=== PATIENT | male | born 2000 | race Caucasian/White ===

== ENCOUNTER 2025-06-13 20:39 | Inpatient (IN) | payer MEDICAID ==
[~2025-06-13] VITALS: Ht 177.8 cm; Wt 65.8 kg
[2025-06-13 20:46] VITALS: O2SAT 100
[2025-06-13] MEDS: SODIUM CHLORIDE 0.9% (SEPSIS BOLUS) IV ONE (23:31)
[2025-06-13] MEDS: PIPERACILLIN/TAZO 3.375G/50ML 50 ML IV ONE (23:37)
[2025-06-13 23:52] LABS: BASOPHILS % 0.8 % (0.0-2.0); EOSINOPHILS % 1.3 % (0.0-5.0); HEMATOCRIT. 34.6 % (42.0-52.0); HEMOGLOBIN. 10.9 g/dL (14.0-18.0); LYMPHOCYTES % 20.7 % (20.0-50.0); MEAN PLATELET VOLUME 8.3 fl (7.4-10.4); MONOCYTES % 7.0 % (2.0-8.0); NEUTROPHILS % 70.2 % (40.0-76.0); PLATELET 388 x1000/uL (130-400); RED BLOOD CELL COUNT 4.63 mill/uL (4.7-6.1); RED CELL DISTRIBUTION WIDTH 17.5 % (11.6-14.6)
[2025-06-13] MEDS: MORPHINE SULFATE 4 MG/ML INJ (FOR IV/IM USE) IV ONE (23:59)
[2025-06-13] MEDS: ONDANSETRON HCL 4MG/2ML INJ IV ONE (23:59)
[2025-06-14 00:02] LABS: CREATININE 0.9 mg/dL (0.6-1.3)
[2025-06-14 00:03] LABS: UREA NITROGEN BLOOD 8 mg/dL (9-23)
[2025-06-14 00:04] LABS: ASPARTATE AMINOTRANSFERASE 15 IU/L (<34)
[2025-06-14 00:05] LABS: BILIRUBIN DIRECT 0.1 mg/dL (<=3.0); BILIRUBIN TOTAL 0.3 mg/dL (0.1-1.0); PROTEIN TOTAL 8.1 g/dL (6.0-8.3)
[2025-06-14 00:54] LABS: CLARITY URINE CLEAR (CLEAR); COLOR URINE YELLOW (YELLOW); GLUCOSE URINE NEGATIVE (NEGATIVE); KETONES URINE NEGATIVE (NEGATIVE); LEUKOCYTE ESTERASE URINE NEGATIVE (NEGATIVE); NITRITE URINE NEGATIVE (NEGATIVE); OCCULT BLOOD URINE NEGATIVE (NEGATIVE); PH URINE 5.5 (4.5-8.0); PROTEIN URINE NEGATIVE (NEGATIVE); SPECIFIC GRAVITY URINE 1.015 (1.005-1.030); UROBILINOGEN URINE 0.2 E.U./dL (0.2-1.0)
[2025-06-14 01:04] LABS: *AMPHETAMINES SCREEN URINE NEGATIVE (NEGATIVE); *BARBITURATES SCREEN URINE NEGATIVE (NEGATIVE); *BENZODIAZEPINES SCREEN URINE NEGATIVE (NEGATIVE); *COCAINE SCREEN URINE NEGATIVE (NEGATIVE); METHADONE URINE SCREEN NEGATIVE (NEGATIVE); OPIATES URINE SCREEN NEGATIVE (NEGATIVE)
[2025-06-14 01:05] LABS: CANNABINOID URINE SCREEN NEGATIVE (NEGATIVE); ECSTASY MDMA SCREEN URINE NEGATIVE (NEGATIVE); PHENCYCLIDINE URINE SCREEN NEGATIVE (NEGATIVE)
[2025-06-14] MEDS: METRONIDAZOLE 500 MG PREMIX 100 ML IV ONE (01:18)
[2025-06-14] MEDS: VANCOMYCIN 1G PREMIX 200 ML IV ONE (01:32)
[2025-06-14] MEDS: IOHEXOL-300 100 ML BOTTLE ONE (02:28)
[2025-06-14] MEDS: ONDANSETRON HCL 4MG/2ML INJ IV ONE (05:07)
[2025-06-14] MEDS: MORPHINE SULFATE 4 MG/ML INJ (FOR IV/IM USE) IV ONE (05:07)
[2025-06-14] MEDS ORDERED: MORPHINE SULFATE 4 MG/ML INJ (FOR IV/IM USE) IV PRN (05:30)
[2025-06-14] MEDS ORDERED: ONDANSETRON HCL 4MG/2ML INJ IV PRN ×4 (05:30→14:45)
[2025-06-14] MEDS ORDERED: ACETAMINOPHEN 325MG TABLET PO PRN ×2 (05:30)
[2025-06-14] MEDS ORDERED: DEXTROSE 50% WATER 50ML SYRINGE IV PRN ×2 (05:30→05:45)
[2025-06-14] MEDS ORDERED: IPRATROPIUM/ALBUTEROL 0.5-3(2.5)MG/3ML NEB HHN PRN (05:30)
[2025-06-14] MEDS ORDERED: KETOROLAC 15MG/ML VIAL IV PRN (05:45)
[2025-06-14] MEDS: DEXT 5%/0.9% NACL 1,000 ML IV SCH (05:51)
[2025-06-14] MEDS: DIATR MEGLU/DIATRIZOATE SOLN 30ML ONE (06:00)
[2025-06-14 06:20] LABS: BASOPHILS % 1.0 % (0.0-2.0); EOSINOPHILS % 2.9 % (0.0-5.0); HEMATOCRIT. 27.7 % (42.0-52.0); HEMOGLOBIN. 8.8 g/dL (14.0-18.0); LYMPHOCYTES % 31.6 % (20.0-50.0); MEAN PLATELET VOLUME 7.9 fl (7.4-10.4); MONOCYTES % 7.6 % (2.0-8.0); NEUTROPHILS % 56.9 % (40.0-76.0); PLATELET 297 x1000/uL (130-400); RED BLOOD CELL COUNT 3.70 mill/uL (4.7-6.1); RED CELL DISTRIBUTION WIDTH 17.7 % (11.6-14.6)
[2025-06-14 06:26] LABS: CREATININE 0.8 mg/dL (0.6-1.3)
[2025-06-14 06:27] LABS: UREA NITROGEN BLOOD 7 mg/dL (9-23)
[2025-06-14 06:29] LABS: PHOSPHORUS 3.7 mg/dL (2.5-4.9)
[2025-06-14] MEDS ORDERED: GABA-529 PO (08:24)
[2025-06-14 08:30] VITALS: BP 114/62; PULSE 73; RESP 18; TEMP 36.0844
[2025-06-14] MEDS: PIPERACILLIN/TAZO 3.375G/50ML 50 ML IV SCH (08:33)
[2025-06-14 12:00] VITALS: BP 103/59; PULSE 70; RESP 18; TEMP 37; O2SAT 96
[2025-06-14] MEDS ORDERED: TRAMADOL 50MG TABLET PO PRN (12:00)
[2025-06-14] MEDS ORDERED: ONDANSETRON HCL 4MG/2ML INJ ONE (13:39)
[2025-06-14] MEDS ORDERED: PROPOFOL 200MG/20ML VIAL IV ONE ×2 (13:39→14:12)
[2025-06-14] MEDS ORDERED: ROCURONIUM BROMIDE 10MG/ML VIAL 5ML IV ONE ×2 (13:39→14:07)
[2025-06-14] MEDS ORDERED: FENTANYL CITRATE/PF 50MCG/ML 2ML VIAL ONE (13:40)
[2025-06-14] MEDS ORDERED: MIDAZOLAM HCL 2 MG/2 ML VIAL ONE (13:40)
[2025-06-14] MEDS ORDERED: SKIN ADHESIVE 0.7 GM EA TOP ONE (13:42)
[2025-06-14] MEDS ORDERED: BUPIVACAINE HCL/PF 0.5% (5MG/ML) 10ML ONE (13:42)
[2025-06-14] MEDS ORDERED: NALOXONE HCL 0.4MG/ML VIAL IV PRN (13:45)
[2025-06-14] MEDS ORDERED: HYDROMORPHONE HCL/PF 1MG/ML INJ IV PRN ×2 (13:45→14:45)
[2025-06-14] MEDS ORDERED: HYDROCODONE/ACETAMINOPHEN 5/325MG TABLET PO PRN ×2 (14:00)
[2025-06-14] MEDS: DEXT 5%/0.45% NACL KCL 20MEQ/L 1,000 ML IV SCH (14:00)
[2025-06-14] MEDS ORDERED: HYDROMORPHONE HCL/PF 2MG/ML INJ ONE (14:28)
[2025-06-14] MEDS ORDERED: FAMOTIDINE 20MG/2ML VIAL IV PRN (14:45)
[2025-06-14] MEDS ORDERED: ACETAMINOPHEN 1,000MG/100ML PREMIX IV PRN (14:45)
[2025-06-14] MEDS ORDERED: LORAZEPAM 2MG/ML UD SYRINGE IV PRN (14:45)
[2025-06-14] MEDS ORDERED: LABETALOL 5MG/ML 4ML INJ IV PRN (14:45)
[2025-06-14] MEDS ORDERED: HYDRALAZINE 20MG/ML VIAL IV PRN ×2 (14:45)
[2025-06-14] MEDS ORDERED: MEPERIDINE HCL/PF 25MG/ML CPJ IV PRN (14:45)
[2025-06-14] MEDS ORDERED: ACETAMINOPHEN 1000MG/100ML 100 ML IV PRN (15:15)
[2025-06-14 16:00] VITALS: BP 110/60; PULSE 51; RESP 18; TEMP 36.7; O2SAT 100
[2025-06-14] MEDS: ASCORBIC ACID 250 MG TABLET PO SCH (17:30)
[2025-06-14] MEDS: MULTIVITAMINS,THER W-MINERALS TABLET PO SCH (17:30)
[2025-06-14 20:00] VITALS: BP 111/63; PULSE 54; RESP 18; TEMP 36.2; O2SAT 99
[2025-06-14] MEDS: MORPHINE SULFATE 10 MG/ML INJ (NOT FOR IM USE) IV PRN (20:18)
[2025-06-14] MEDS: IRON SUCROSE COMPLEX 100 MG/5 ML ML IV SCH (20:26)
[2025-06-15] VITALS: BP 103/61; PULSE 72; RESP 19; TEMP 36.2; O2SAT 99
[2025-06-15 04:00] VITALS: BP 109/52; PULSE 62; RESP 18; TEMP 36.2; O2SAT 98
[2025-06-15 08:00] VITALS: BP 105/60; PULSE 60; RESP 18; TEMP 37; O2SAT 98
[2025-06-15] MEDS: PANTOPRAZOLE SODIUM 40 MG/VIAL IV SCH (08:52)
[2025-06-15] MEDS: HYDROCODONE/ACETAMINOPHEN 10/325MG TABLET PO PRN (08:52)
[2025-06-15] MEDS ORDERED: MORPHINE SULFATE 2 MG/ML INJ (NOT FOR IM USE) IV PRN (09:15)
[2025-06-15 09:37] LABS: FOLIC ACID (FOLATE) SERUM 13.70 ng/mL (>5.38); VITAMIN B12 SERUM 508 pg/mL (211-911)
[2025-06-15 09:47] LABS: BASOPHILS % 0.5 % (0.0-2.0); EOSINOPHILS % 0.3 % (0.0-5.0); HEMATOCRIT. 30.8 % (42.0-52.0); HEMOGLOBIN. 9.8 g/dL (14.0-18.0); LYMPHOCYTES % 20.3 % (20.0-50.0); MEAN PLATELET VOLUME 8.7 fl (7.4-10.4); MONOCYTES % 7.7 % (2.0-8.0); NEUTROPHILS % 71.2 % (40.0-76.0); PLATELET 348 x1000/uL (130-400); RED BLOOD CELL COUNT 4.18 mill/uL (4.7-6.1); RED CELL DISTRIBUTION WIDTH 17.7 % (11.6-14.6)
[2025-06-15 09:48] LABS: CREATININE 0.8 mg/dL (0.6-1.3)
[2025-06-15 09:49] LABS: UREA NITROGEN BLOOD 6 mg/dL (9-23)
[2025-06-15 09:50] LABS: ASPARTATE AMINOTRANSFERASE 13 IU/L (<34)
[2025-06-15 09:51] LABS: BILIRUBIN DIRECT < 0.1 mg/dL (<=3.0); BILIRUBIN TOTAL 0.3 mg/dL (0.1-1.0); PHOSPHORUS 3.9 mg/dL (2.5-4.9); PROTEIN TOTAL 6.3 g/dL (6.0-8.3)
[2025-06-15 09:59] LABS: C REACTIVE PROTEIN HIGH SENS 22.55 mg/l (<1.00)
[2025-06-15] MEDS ORDERED: GABAPENTIN 100MG CAPSULE PO PRN (10:30)
[2025-06-15 12:00] VITALS: BP 104/58; PULSE 61; RESP 18; TEMP 36.6; O2SAT 98
[2025-06-15] MEDS ORDERED: GABA-1180 PO (12:25)
[2025-06-15] MEDS: MORPHINE SULFATE 10 MG/ML INJ (NOT FOR IM USE) IV PRN (12:27)
[2025-06-15 17:40] VITALS: BP 109/57; PULSE 71; RESP 18; TEMP 36.8; O2SAT 98
[2025-06-15 20:23] VITALS: BP 104/49; PULSE 55; RESP 17; TEMP 36.7; O2SAT 100
[2025-06-15] MEDS: BUSPIRONE HCL 10MG TABLET PO SCH (20:34)
[2025-06-16] VITALS: BP 110/59; PULSE 62; RESP 18; TEMP 36.8; O2SAT 98
[2025-06-16 04:00] VITALS: BP 119/68; PULSE 62; RESP 17; TEMP 36.7; O2SAT 97
[2025-06-16 06:36] LABS: BASOPHILS % 0.9 % (0.0-2.0); EOSINOPHILS % 2.5 % (0.0-5.0); HEMATOCRIT. 28.5 % (42.0-52.0); HEMOGLOBIN. 9.3 g/dL (14.0-18.0); LYMPHOCYTES % 37.7 % (20.0-50.0); MEAN PLATELET VOLUME 8.4 fl (7.4-10.4); MONOCYTES % 7.3 % (2.0-8.0); NEUTROPHILS % 51.6 % (40.0-76.0); PLATELET 281 x1000/uL (130-400); RED BLOOD CELL COUNT 3.86 mill/uL (4.7-6.1); RED CELL DISTRIBUTION WIDTH 17.3 % (11.6-14.6)
[2025-06-16 06:59] LABS: CREATININE 1.0 mg/dL (0.6-1.3)
[2025-06-16 07:00] LABS: UREA NITROGEN BLOOD 6 mg/dL (9-23)
[2025-06-16 07:02] LABS: PHOSPHORUS 4.8 mg/dL (2.5-4.9)
[2025-06-16] MEDS: FOLIC ACID/VITAMIN B COMP W-C TABLET PO SCH (10:06)
[2025-06-16] MEDS ORDERED: MEROPENEM 1,000 MG in SODIUM CHLORIDE 0.9% 100 ML IV SCH (14:30)
[2025-06-16] MEDS: MEROPENEM 1,000MG in SODIUM CHLORIDE 0.9% 100ML IV SCH (17:11)
[2025-06-16 20:00] VITALS: BP 112/60; PULSE 58; RESP 18; TEMP 36.7; O2SAT 100
[2025-06-17] VITALS: BP 110/58; PULSE 60; RESP 18; TEMP 36.5; O2SAT 98
[2025-06-17 04:00] VITALS: BP 111/59; PULSE 56; RESP 18; TEMP 36.7; O2SAT 96
[2025-06-17 08:00] VITALS: BP 107/62; PULSE 54; RESP 18; TEMP 36.2; O2SAT 99
[2025-06-17 11:26] LABS: BASOPHILS % 0.5 % (0.0-2.0); EOSINOPHILS % 1.5 % (0.0-5.0); HEMATOCRIT. 32.7 % (42.0-52.0); HEMOGLOBIN. 10.6 g/dL (14.0-18.0); LYMPHOCYTES % 18.6 % (20.0-50.0); MEAN PLATELET VOLUME 8.1 fl (7.4-10.4); MONOCYTES % 7.1 % (2.0-8.0); NEUTROPHILS % 72.3 % (40.0-76.0); PLATELET 321 x1000/uL (130-400); RED BLOOD CELL COUNT 4.48 mill/uL (4.7-6.1); RED CELL DISTRIBUTION WIDTH 17.5 % (11.6-14.6)
[2025-06-17 11:45] LABS: CREATININE 1.0 mg/dL (0.6-1.3); UREA NITROGEN BLOOD 8 mg/dL (9-23)
[2025-06-17 11:47] LABS: PHOSPHORUS 3.4 mg/dL (2.5-4.9)
[2025-06-17 16:12] VITALS: BP 114/54; PULSE 61; RESP 18; TEMP 36.8; O2SAT 98
[2025-06-17 20:00] VITALS: BP 108/50; PULSE 76; RESP 18; TEMP 36.1; O2SAT 99
[2025-06-17] MEDS: LACTOBACILLUS RHAMNOSUS GG CAP PO SCH (20:18)
[2025-06-18] VITALS: BP 100/47; PULSE 72; RESP 18; TEMP 36.2; O2SAT 99
[2025-06-18 04:00] VITALS: BP 100/59; PULSE 64; RESP 18; TEMP 36.6; O2SAT 98
[2025-06-18 08:00] VITALS: BP 94/51; PULSE 63; RESP 20; TEMP 36.4; O2SAT 97
[2025-06-18 08:00] LABS: BASOPHILS % 0.4 % (0.0-2.0); EOSINOPHILS % 3.1 % (0.0-5.0); HEMATOCRIT. 32.1 % (42.0-52.0); HEMOGLOBIN. 10.4 g/dL (14.0-18.0); LYMPHOCYTES % 22.3 % (20.0-50.0); MEAN PLATELET VOLUME 8.1 fl (7.4-10.4); MONOCYTES % 7.7 % (2.0-8.0); NEUTROPHILS % 66.5 % (40.0-76.0); PLATELET 316 x1000/uL (130-400); RED BLOOD CELL COUNT 4.36 mill/uL (4.7-6.1); RED CELL DISTRIBUTION WIDTH 17.0 % (11.6-14.6)
[2025-06-18 08:08] LABS: CREATININE 0.9 mg/dL (0.6-1.3); UREA NITROGEN BLOOD 13 mg/dL (9-23)
[2025-06-18 08:10] LABS: PHOSPHORUS 3.9 mg/dL (2.5-4.9)
[2025-06-18] MEDS: MESALAMINE 400 MG CAPSULE.DR PO SCH (11:00)
[2025-06-18 12:00] VITALS: BP 119/65; PULSE 63; RESP 18; TEMP 36.5; O2SAT 98
[2025-06-18] MEDS: MORPHINE SULFATE 4 MG/ML INJ (FOR IV/IM USE) IV PRN (13:00)
[2025-06-18 16:00] VITALS: BP 100/50; PULSE 78; RESP 16; TEMP 36.6; O2SAT 100
[2025-06-18 20:00] VITALS: BP 101/57; PULSE 78; RESP 18; TEMP 36.7; O2SAT 99
[2025-06-19] VITALS: BP 97/49; RESP 18; TEMP 36.4; O2SAT 99
[2025-06-19 08:00] VITALS: BP 100/48; PULSE 73; RESP 20; TEMP 36.3; O2SAT 100
[2025-06-19 12:00] VITALS: BP 108/54; PULSE 63; RESP 20; TEMP 36.5; O2SAT 100
[2025-06-19 15:04] VITALS: BP 108/54; PULSE 63; RESP 20
== END 2025-06-19 16:15 | disposition left against medical advice (07) | DRG 710 ==
LOC: ER 20:39 → 8WST 06-14 04:30 → EDBEDREQSVC 06-14 04:43 → EDBEDREQ 06-14 04:43 → EDBEDREQDT 06-14 04:43 → EDBEDREQTM 06-14 04:43 → EDBEDREQSVC 06-14 06:07 → 6EST 06-18 14:35
PROVIDERS: ADMIT Student in an Organized Health Care Education/Training Program; ATTEND Student in an Organized Health Care Education/Training Program
PROC: 0W9F0ZZ Drainage of Abdominal Wall, Open Approach (ICD-10-PCS; principal; 2025-06-14)
DX: A41.9 Sepsis, unspecified organism (principal); K50.913 Crohn's disease, unspecified, with fistula; D50.9 Iron deficiency anemia, unspecified; E83.42 Hypomagnesemia; E87.6 Hypokalemia; K56.41 Fecal impaction; L02.211 Cutaneous abscess of abdominal wall; F32.A Depression, unspecified; F41.1 Generalized anxiety disorder; L98.8 Other specified disorders of the skin and subcutaneous tissue; Z16.12 Extended spectrum beta lactamase (ESBL) resistance; B96.20 Unspecified Escherichia coli [E. coli] as the cause of diseases classified elsewhere; Z53.29 Procedure and treatment not carried out because of patient's decision for other reasons; Z93.2 Ileostomy status; Z79.899 Other long term (current) drug therapy; Z88.1 Allergy status to other antibiotic agents; Z91.148 Patient's other noncompliance with medication regimen for other reason
CPT/HCPCS: 36415; 71045; 74176; 74177; 80048; 80076; 80305; 81003; 82550; 82607; 82728; 82746; 82962; 83520; 83540; 83550; 83605; 83735; 84100; 84145; 84207; 85025; 85651; 86141; 86256; 87070; 87075; 87077; 87186; 96365; 96368; 96375; 99285; A4606; J0665; J1171; J1885; J2185; J2250; J2270; J2405; J2470; J2543; J2704; J3010; J3373; J3490; J7030; J7050; Q9963; Q9967